=== PATIENT | male | born 1980 | race Caucasian/White ===

== ENCOUNTER 2018-08-25 17:14 | Observation (INO) | payer OTHER ==
--- NOTE | 2018-08-25 18:07 | ED ---
Neurological HPI - HPI Summary HPI Summary: A 37 y/o M presents to ED with c/o intermittent blurry vision in L eye onset this AM. Associated sx: bilateral double vision, L eye drifting, mild R hand numbness, abd cramping. He's had similar sx two weeks ago, and states it happened once before approximately 10 years ago. He notes that when he had an episode of L eye drifting two weeks ago, he had started Depakote for mood stabilization a day or two before. Pt denies any fever, chills, erythema of eyes , sore throat, CP, SOB, cough, abdominal pain, N/V, dysuria, hematuria, myalgia , edema, rash, SHAY, slurred speech, dizziness. He's been clean since Apr 24. Pt sent from [facility], he's been in-patient there for two months. PMHx: substance abuse (heroin, meth), L forearm fasciotomy in April, MRSA. Denies lazy eye. - History of Current Complaint Chief Complaint: EDNeurologicalDeficit Stated Complaint: DOUBLE VISION PER PT Time Seen by Provider: 08/25/18 17:51 Hx Obtained From: Patient Onset/Duration: Started hours ago, Still Present Timing: Intermittent Episodes Lasting: Current Severity: Moderate Seizure Severity: Moderate Pain Intensity: 0 Pain Scale Used: 0-10 Numeric Character: Visual Changes Aggravating: Nothing Alleviating: Unknown Associated Signs and Symptoms: Positive: Visual Changes, Numbness - R hand - Allergy/Home Medications Allergies/Adverse Reactions: Allergies Allergy/AdvReac Type Severity Reaction Status Date / Time acetaminophen [From Tylenol] Allergy Hives/Diff. Verified 08/25/18 17:46 Breathing/I tching PMH/Surg Hx/FS Hx/Imm Hx Previously Healthy: No Opthamlomology History: Denies: Hx Legally Blind EENT History: Denies: Hx Deafness Neurological History: Denies: Hx Dementia Psychiatric History: Reports: Hx Substance Abuse Infectious Disease History: Yes Infectious Disease History: Reports: Hx of Known/Suspected MRSA Denies: Traveled Outside the [place] in Last 30 Days - Social History Occupation: Unemployed Lives: Retirement - [facility] in-patient Hx Substance Use: Yes Substance Use Type: Reports: Heroin, Other - meth Substance Use Comment - Amount & Last Used: Clean since apr 2019 Review of Systems Negative: Fever, Chills Positive: Blurred Vision, Diplopia, Other - pos: L eye drifting. Negative: Drainage Negative: Sore Throat Negative: Chest Pain Negative: Shortness Of Breath, Cough Positive: Abdominal Pain - abd cramping. Negative: Vomiting, Nausea Negative: dysuria, hematuria Negative: Myalgia, Edema Negative: Rash Neurological: Other - neg: dizziness Positive: Numbness - R hand. Negative: Headache, Slurred Speech All Other Systems Reviewed And Are Negative: Yes Physical Exam - Summary Physical Exam Summary: Constitutional: Well-developed, Well-nourished, Alert. (-) Distressed Skin: Warm, Dry HENT: Normocephalic; Atraumatic Eyes: Conjunctiva normal, horizontal end gaze nystagmus Neck: Musculoskeletal ROM normal neck. (-) JVD, (-) Stridor, (-) Tracheal deviation Cardio: Rhythm regular, rate normal, Heart sounds normal; Intact distal pulses; The pedal pulses are 2+ and symmetric. Radial pulses are 2+ and symmetric. (-) Murmur Pulmonary/Chest wall: Effort normal. (-) Respiratory distress, (-) Wheezes, (-) Rales Abd: Soft. (-) Tenderness, (-) Distension, (-) Guarding, (-) Rebound Musculoskeletal: (-) Edema Lymph: (-) Cervical adenopathy Neuro: Alert, Oriented x3, Strength normal, Cranial nerves II-XII are grossly intact. (-) Dysmetria, (-) Nystagmus, (-) Ataxia by finger to nose testing, (-) Sensory deficit. Psych: Mood and affect Normal Triage Information Reviewed: Yes Vital Signs On Initial Exam: Initial Vitals Temp Pulse Resp BP Pulse Ox 97.8 F 88 20 145/90 97 08/25/18 17:43 08/25/18 17:43 08/25/18 17:43 08/25/18 17:43 08/25/18 17:43 Vital Signs Reviewed: Yes - Natalia Coma Scale Best Eye Response: 4 - Spontaneous Best Motor Response: 6 - Obeys Commands Best Verbal Response: 5 - Oriented Coma Scale Total: 15 Diagnostics - Vital Signs Vital Signs Temp Pulse Resp BP Pulse Ox 08/25/18 17:43 97.8 F 88 20 145/90 97 - Laboratory Result Diagrams: 08/25/18 18:33 08/25/18 18:33 Lab Statement: Any lab studies that have been ordered have been reviewed, and results considered in the medical decision making process. - CT BRAIN CT CT Interpretation Completed By: Radiologist Summary of CT Findings: IMPRESSION: No acute intracranial pathology. ED provider has reviewed this report. CTA CT Interpretation Completed By: Radiologist Summary of CT Findings: IMPRESSION: Normal head CTA. Normal neck CTA. ED provider has reviewed this report. - EKG 1929 Cardiac Rate: NL - 77bpm EKG Rhythm: Sinus Rhythm Summary of EKG Findings: No STEMI. Re-Evaluation - Re-Evaluation 1 Re-Evaluation Time: 21:28 Change: Unchanged Comment: Discussing results with pt, and potential for admission. He is agreeable to this. Course/Dx - Course Course Of Treatment: Pt is a 37 y/o M presenting with intermittent blurry vision in L eye, L eye drifting and blurred vision bilaterally onset this AM. He 's had similar sx two weeks ago, and states it happened once before approximately 10 years ago. PE finds horizontal end gaze nystagmus. R/o CVA vs. demyelinating disease. Consulted with Dr. Hernandez, neuro, who recommends CTA , MRI and admission. Consulted with Dr. Coats, hospitalist, who will admit patient. - Diagnoses Provider Diagnoses: Diplopia - Physician Notifications Discussed Care Of Patient With: Mk Hernandez - neuro Time Discussed With Above Provider: 20:00 Instructed by Provider To: Other - Recommends CTA head/neck to rule out vasospasm in event pt is still using drugs, and MRI, and admission to hospital. Discharge - Sign-Out/Discharge Documenting (check all that apply): Patient Departure - ADMIT Patient Received Moderate/Deep Sedation with Procedure: No - Discharge Plan Condition: Stable Disposition: ADMITTED TO [facility] Referrals: No Primary Care Phys,NOPCP [Primary Care Provider] - - Attestation Statements Document Initiated by Scribe: Yes Documenting Scribe: Maicol Botello Provider For Whom Scribe is Documenting (Include Credential): Dr. Efraín Flores MD Scribe Attestation: Maicol Zhou, scribed for Dr. Efraín Flores MD on 08/25/18 at 2142. Consult Consult: 2133: Consult with Dr. Coats, hospitalist Will admit patient
[2018-08-25 18:43] LABS: ABS Basophils 0.1 10^3/ul (0-0.2); ABS Eosinophils 0.4 10^3/ul (0-0.6); ABS Lymphocytes 3.2 10^3/ul (1.0-4.8); ABS Monocytes 0.7 10^3/ul (0-0.8); ABS Neutrophils 3.5 10^3/ul (1.5-7.7); ABS Nucleated RBC 0 10^3/ul; Eosinophil % 4.6 %; Hematocrit 38 % (36-46); Hemoglobin 12.9 g/dL (14.0-18.0); Lymphocyte % 40.7 %; Mean Corpuscular HGB Conc 34 g/dL (31-36); Mean Corpuscular Hemoglobin 30 pg (27-31); Mean Corpuscular Volume 86 fL (80-94); Mean Platelet Volume 7.3 fL (7.4-10.4); Nucleated Red Blood Cells % 0; Platelet Count 252 10^3/uL (150-450); Red Blood Count 4.37 10^6 /uL (4.18-5.48); Red Cell Distribution Width 13 % (10.5-15); White Blood Count 7.8 10^3/uL (3.5-10.8)
[2018-08-25 19:02] LABS: ALT 16 U/L (7-52); AST 21 U/L (13-39); Albumin/Globulin Ratio 1.4 (1-3); Alkaline Phosphatase 36 U/L (34-104); Anion Gap 3 mmol/L (2-11); Blood Urea Nitrogen 19 mg/dL (6-24); CO2 Carbon Dioxide 32 mmol/L (22-32); Calcium 9.1 mg/dL (8.6-10.3); Chloride 104 mmol/L (101-111); EGFR African American 108.5 (>60); EGFR Non-African American 89.7 (>60); Globulin 2.8 g/dL (2-4); Glucose 113 mg/dL (70-100); Sodium 139 mmol/L (135-145); Total Protein 6.8 g/dL (6.4-8.9)
[2018-08-25 19:23] LABS: Lithium 0.64 mmol/L (0.6-1.2)
[2018-08-25] MEDS ORDERED: Iohexol 350* (CONTRAST) 500 ML MDV IV ONE (20:11)
[2018-08-25 20:26] LABS: Alcohol < 10 mg/dL (<10)
[2018-08-25] MEDS ORDERED: Nicotine GUM* 2 MG PO PRN (22:21)
[2018-08-25] MEDS ORDERED: Melatonin 3 MG TAB PO PRN (22:21)
[2018-08-25] MEDS ORDERED: cloNIDine TAB* 0.1 MG PO PRN (22:21)
[2018-08-25 22:51] LABS: Urine Appearance Clear; Urine Bilirubin Negative (Negative); Urine Blood Negative (Negative); Urine Color Yellow; Urine Glucose Negative (Negative); Urine Ketones Negative (Negative); Urine Nitrite Negative (Negative); Urine Protein Negative (Negative); Urine Urobilinogen Negative (Negative)
[2018-08-25 23:12] LABS: Barbiturates Urine Screen None Detected (None Detect); Benzodiazepine Urine Screen None Detected (None Detect); Urine Cannabinoids Screen None Detected (None Detect)
[2018-08-25] MEDS ORDERED: Gabapentin CAP(*) 300 MG PO SCH (23:52)
[2018-08-26] MEDS: Lithium Carbonate TAB* 300 MG PO SCH ×2 (00:25→08:56)
--- NOTE | 2018-08-26 00:41 | HP ---
CC: Clinical Staff at [facility]; Dr. Mk Hernandez * ADMISSION HISTORY AND PHYSICAL: DATE OF ADMISSION: 08/25/18 PRIMARY CARE PROVIDER: The patient's primary care provider is in [place], [place]. He is currently seeing providers at [facility] here in [place]. ATTENDING PHYSICIAN ON THIS ADMISSION: Dr. Debby Coats.* (DICTATED BY BRIAN BROWN, DESHAUN) CONSULTING PHYSICIAN: Dr. Mk Hernandez of Neurology. CHIEF COMPLAINT: Blurry vision, visual disturbances since Wednesday. HISTORY OF PRESENT ILLNESS: This is a very pleasant 37-year-old male patient who has been a resident of [facility] for the last 2 months, who reports visual disturbances that started on Wednesday. The patient initially noted some drifting of his left eye that appeared to present to him like a lazy eye, which he has never had before. He noticed shortly thereafter some episodes of blurry vision , visual disturbances distantly, and then increased over the last 24 hours to the point that today he was having trouble breathing, stated that words on the paper appeared to be doubled and very fuzzy. The patient also as a part of his therapy at [facility] does stitch work, crocheting, and knitting and noticed that he was unable to perform this activity. When these symptoms increased today, he was sent to the emergency department for evaluation. In the ED, the patient had a CT and CTA of the head, both of which were negative and did not show any acute pathologies. Neurology was consulted. Given his persistent visual disturbances, Neurology recommended MRI and observation admission. PAST MEDICAL HISTORY: Significant only for wound in the forearm that required fasciotomy. Denies any further medical history. PAST SURGICAL HISTORY: History of fasciotomy. HOME MEDICATIONS: 1. Melatonin 10 mg at bedtime as needed. 2. Nicotine gum 16 mg p.o. 2 times a day as needed. 3. Clonidine 0.1 mg p.o. 4 times a day as needed. 4. Buprenorphine 8 mg sublingual 2 times a day. 5. Depakote 250 mg p.o. b.i.d. 6. Gabapentin 600 mg at bedtime and 400 mg 3 times a day. 7. Tofranil 50 mg at bedtime. 8. Strattera 100 mg p.o. daily. 9. [place] carbonate 600 mg p.o. b.i.d. ALLERGIES: The patient has allergy to TYLENOL which causes rash and shortness of breath. FAMILY HISTORY: Noncontributory. SOCIAL HISTORY: The patient is currently a resident at [facility]. He does have history of substance abuse in the form of heroin and methamphetamines and was using tobacco products as well. He is now currently on nicotine patch. The patient has been clean and sober since April 2018. REVIEW OF SYSTEMS: The patient denies any fever, fatigue, or chills. No headache. He does endorse blurry vision and difficulty reading, also notes visual disturbance at a distance, but denies any eye pain. He does not report any fatigue or chills. No shortness of breath, no nausea, no vomiting, no urinary complaints, and no further constitutional complaints. PHYSICAL EXAMINATION GENERAL: The patient is well appearing, well developed male, appears to be of stated age, in no acute distress. VITAL SIGNS: Blood pressure 124/76, heart rate 86, respiratory rate 16, O2 saturation 97% on room air with a temperature of 98.4. HEENT: The patient is atraumatic, normocephalic. He has PERRLA, nonicteric sclerae. He does have a left upper nystagmus. Otherwise, his extraocular movements are intact. Oral mucosa is moist. Tongue is midline. NECK: Supple, nontender. No JVD noted. No carotid bruit auscultated. LUNGS: Clear bilaterally to auscultation with no wheezing, rhonchi, or rales. CARDIOVASCULAR: S1, S2 present. No murmurs, gallops, or rubs noted. ABDOMEN: Soft and nontender and nondistended. Positive bowel sounds in all 4 quadrants. : Deferred. MUSCULOSKELETAL: There is no clubbing, no cyanosis, no edema. He has +2 distal pulses palpable. Full range of motion. Gross motor and sensation are intact. NEUROLOGIC: No focal deficits. Physically at this time, he has equal supervisor shuttle preparation, steady gait. Visual disturbance does remain persistent. PSYCHIATRIC: He is cooperative and appropriate. DIAGNOSTIC STUDIES/LAB DATA: WBC 7.8, RBCs 4.37, hemoglobin 12.9, hematocrit 38 , platelets 252. Sodium 139, potassium 4.0, chloride 104, CO2 of 32, BUN 19, creatinine 0.95, GFR 89.7, glucose 113, lactic acid 0.8, calcium 9.1. Bilirubin 0.30, AST 21, ALT 16, alk phos 36. Troponins negative at 0.00. Protein 6.8, albumin 4.0, globulin 2.8. Serum alcohol is less than 10. [place] level 0.64. Valproic acid level is 18.0. IMPRESSION: This is a 37-year-old male patient with no significant medical history who presents with visual disturbance and persistent diplopia. PLAN: The patient will be admitted to observation. Diagnosis: Visual disturbance and blurred vision. Neurology has already been consulted by the emergency department. Dr. Hernandez will see the patient tomorrow. Dr. Hernandez recommended an MRI in the morning and he will evaluate the patient. In terms of his medications, the patient's story is consistent with what may be a medication side effect. He reported that the visual troubles started on Wednesday morning after he started his first dose of Depakote which was a new prescription for him on Wednesday. Depakote is known to cause visual disturbances and my thought is in absence of any other pathology on his MRI that this could possibly be a medication reaction. We will hold the Depakote for now. The patient is agreeable to this. He does state that he did not feel right on the Depakote either and continue to monitor his visual function. In either case, I did explain to the patient that if his neurology workup was negative and his vision improved, he would still need to follow up with an weld engineer as an outpatient. He is also agreeable to this. The patient's labs were unremarkable and so was his imaging. At this point, the patient will stay in observation, home medications will be continued with the exception of his Depakote, and we will monitor the patient throughout the evening, also doing neuro checks q.4 hours. The rest of the patient's course will be determined by further diagnostics, laboratories, and any other input from other providers as warranted during this admission. TIME SPENT: Approximately 60 minutes evaluating the patient and determining admission plan of care. This plan of care has been discussed with Dr. Debby Coats, who is in agreement. BRIAN BROWN, DESHAUN [id number]/[facility] #: [id number] [facility]ENT[facility]
[2018-08-26] MEDS: Gabapentin CAP(*) 400 MG PO SCH ×2 (08:57→14:14)
[2018-08-26] MEDS ORDERED: Buprenorphine TAB* 8 MG SL SCH (09:00)
[2018-08-26] MEDS ORDERED: Lithium Carbonate TAB* 300 MG PO SCH (09:00)
[2018-08-26] MEDS ORDERED: CMCS:Atomoxetine(NF) 25 MG CAP PO SCH (09:00)
[2018-08-26 14:29] VITALS: BP 121/74
[2018-08-26] MEDS ORDERED: Aspirin 81 mg CHEW TAB* 81 MG TAB.CHEW PO SCH (15:00)
--- NOTE | 2018-08-26 15:53 | CONS ---
NEUROLOGY CONSULTATION NOTE: DATE OF CONSULT: 08/26/18 CONSULTING PROVIDER: Dr. Efraín Flores. REASON FOR CONSULT: Double vision. CHIEF COMPLAINT: Blurry vision in the left eye. HISTORY OF PRESENT ILLNESS: Mr. Aydin Lopez is a pleasant 37-year-old right- handed man with former history of heroin and methamphetamine use; he has been clean since 04/24/18. The patient is currently residing at [facility] right now for treatment of heroin addiction. He reported an injury approximately 1 week ago where he hit the back of his head. However, prior to this injury, the patient stated that he can see his left eye deviating towards the left. This occurs intermittently. He is able to retract and bring his eye back to primary gaze. This can last minutes, hours, and can occur intermittently. He was started on Depakote 2 weeks ago 250 mg twice daily for mood stabilization. Yesterday morning on 08/25/18, the patient woke up with double vision. He sees his vision overlapping. The double vision is described as horizontal, binocular and it resolves with 1 eye closure. The double vision is worse when he looks towards the left and gets much better when looking towards the right. He has an associated symptoms of mild headache, it is in the bitemporal region, pressure-like, 2-1/2 out of 10 in severity, nonradiating, and not associated with any nausea. He does have light photosensitivity. He denies history of migraines. He denied focal weakness or paresthesias. He denied any trouble swallowing. He denied any tinnitus or vertigo. The patient stated that over the past few weeks he has noticed some trouble with numbness in the right hand radiating towards the right wrist. Shaking the hand does not improve his symptoms. PAST MEDICAL HISTORY: Hepatitis C, depression, bipolar disorder type 2, posttraumatic stress disorder, generalized anxiety. The patient has a history of seizures following benzodiazepine withdrawal, January of 2018. He was evaluated by Neurology at Dr. Arzola's office in [place]. PAST SURGICAL HISTORY: The patient has tube placed in the jaw. He had a fasciotomy due to abscess drainage in the left arm. His nail was removed from an accident. He had a polypectomy and a hemorrhoidectomy. MEDICATIONS: Home medications include: 1. Nicotine gum. 2. Clonidine 0.1 mg p.o. 4 times a day as needed. 3. Buprenorphine 8 mg sublingual b.i.d. 4. Depakote 250 mg p.o. b.i.d. 5. Gabapentin 600 mg at bedtime. 6. Gabapentin 400 mg p.o. 3 times a day. 7. Tofranil 50 mg p.o. at bedtime. 8. Strattera 100 mg p.o. daily. 9. [place] carbonate 600 mg p.o. b.i.d. 10. Melatonin 10 mg p.o. at bedtime. ALLERGIES: ACETAMINOPHEN. REVIEW OF SYSTEMS: A 14-point review of systems was obtained and otherwise negative except for what was mentioned in the HPI. PHYSICAL EXAMINATION: Vitals: Temperature of 98.0, heart rate of 67, respiratory rate of 20, oxygen saturation 99%, blood pressure 107/64. General: A well- nourished, well-developed man in no acute distress. Head: Normocephalic, atraumatic without any obvious abnormality. Eyes: Conjunctivae/ corneas are clear. Neck: Supple and symmetrical with no carotid bruit. Lungs: Clear to auscultation bilaterally. Nonlabored breathing. Cardiovascular: Slight tachycardia with normal S1, S2. Extremities: Normal range of motion with no cyanosis. Skin: He has got a fasciotomy on the left that is well healed. No other skin lesions or rashes. Psych: Affect is broad and normal mood. Neurological Examination: Mental Status: Awake, alert, and oriented to person, place, time, and general circumstances. Speech and language including expression, naming, repetition, and comprehension were assessed and found to be normal. Cranial Nerves: Normal confrontation testing bilaterally. Pupils are midrange and reactive to light. Undilated funduscopic examination showed normal disc margins bilaterally. He has no ptosis. There is slight weakness to the lateral rectus muscle on the left, but no significant weakness is noted. He has binocular diplopia that is horizontal that corrects with one eye closure. Worsening of double vision when eyes deviate towards the left. No facial asymmetry. He is able to hear throughout the history process. Symmetrical palatal elevation. There is normal strength against shoulder resistance. Tongue is symmetric in midline with no atrophy or fasciculation. Motor Examination: No abnormal movements or pronator drift. Normal bulk and tone throughout the upper and lower extremities with normal strength. Reflexes: Right/left brachioradialis 2/2, biceps 2/2, triceps 2/2, patella 3/2, ankle 2/2 , plantar flexor/flexor. Sensation is intact to light touch throughout. Normal vibratory sensation at the great toes. Coordination: Normal finger-to- nose and chsy-ej-mred testing. Gait and Station: Narrow based and normal stance. No ataxia. LABORATORY DATA, IMAGING, AND OTHER DIAGNOSTIC TESTING: WBC of 7.8, hemoglobin of 12.9, hematocrit of 38, platelet is 252. Sodium of 139, potassium is 4.1, chloride of 104, BUN of 19, lactic acid is 0.8. AST is 21, ALT is 16. Urinalysis was unremarkable with no evidence of pyuria. Urine toxicology screen , valproic acid is 18, lithium is 0.64. Imaging: CT of the head showed no evidence of acute intracranial abnormality. Head CTA completed on 08/25/18 showed very fine, thin, narrowed left vertebral artery throughout the extra and intracranial regions. MRI brain without contrast was completed and showed no evidence of any demyelinating disease, hyperintensities, or stroke. ASSESSMENT: Mr. Aydin Lopez is a 37-year-old man who has a history of head injury 1 week ago after hitting his head on a concrete wall, who was recently started on Depakote 2 weeks ago, who presents with a sudden-onset binocular horizontal diplopia that resolves with one eye closure. On examination, the patient has binocular diplopia that resolves with one eye closure with slight weakness with exacerbation of the diplopia when looking towards the left as well slight weakness with the lateral rectus muscle on the left. Differential diagnosis is broad and include traumatic abducens nerve palsy on the left, microvascular ischemic changes in the setting of Strattera. I do not think this is related to medication such as Depakote since he has taken a low dose and also since symptoms started suddenly yesterday. He does complain of more of subacute symptoms of left gaze deviation on the left eye, which raises a concern for other etiologies such as demyelinating disease. He had no evidence of elevated intracranial pressure given his intraocular examination. He has no history of alcohol use to suspect thiamine deficiency and the symptoms are not fluctuating or diurnal to suspect neuromuscular junction disorder. Plus, it's unlikely related to a neuromuscular disorder as he has no ptosis or any other complaints such as swallowing difficulties or focal weakness. RECOMMENDATIONS: I recommend repeating an MRI and obtaining a contrasted study to look at the jr and to evaluate for any possible demyelinating disease. I also added ESR, CRP, vitamin B12, TSH, and acetylcholine receptor antibody testing for further comprehensive evaluation. He does not have any significant headaches or fevers to suspect an infection that may contribute to his symptoms. He needs to discuss with his psychiatrist about Strattera as it can increase his risk for small vessel ischemic. We will treat him with a small- dose aspirin in case he does have evidence of microvascular ischemia to the nerve. Also he needs an urgent ophthalmologic evaluation as an outpatient. I will be more than happy to follow up with him in 3 to 4 weeks. He does not need to stay in the hospital if the MRI with contrast is unremarkable. TIME SPENT: I spent a total of 70 minutes of which more than 50% was spent obtaining history, examining the patient, and discussing the treatment plan with the patient and primary team. ADDENDUM: the patient was switched to Plavix 75 mg daily since he is allergic to aspirin. ESR, TSH, B12 are all within normal range. Again, I am not convinced that this is a stroke, but until he is evaluated by an economic forecaster , and a diagnosis is obtained, I recommend keeping him on Plavix for now. We will follow-up as an outpatient. [id number]/[facility] #: [id number] EDSON
[2018-08-26] MEDS ORDERED: Clopidogrel TAB* 75 MG PO SCH (16:00)
[2018-08-26 16:02] LABS: C Reactive Protein < 1.00 mg/L (<8.01)
[2018-08-26 16:41] LABS: TSH (Thyroid Stimulating Horm) 5.17 mcIU/mL (0.34-5.60)
[2018-08-26 16:48] LABS: Free T4 0.67 ng/dL (0.61-1.12)
[2018-08-26] MEDS ORDERED: Gabapentin CAP(*) 300 MG PO SCH (21:00)
[2018-08-26] MEDS ORDERED: CMCS:Imipramine (NF) 25 MG TAB PO SCH (21:00)
--- NOTE | 2018-08-26 21:49 | DS ---
DISCHARGE SUMMARY: DATE OF ADMISSION: DATE OF DISCHARGE: 08/26/18 HISTORY OF PRESENT ILLNESS: This 37-year-old man presented with blurry vision, diplopia and visual d isturbances for several days. This was interfering with some of his activities. He presented to the emergency department. He had a CT and CTA of the head. He had an MRI later and then another MRI wi th contrast of the brain. Dr. Hernandez saw him in consultation for neurology. The imaging studies were all negative. It is possible that he had a very small stroke that was missed because of the small si ze. The patient has a history of being allergic to [employer]ED[employer], which contains acetaminophen, aspirin and caffeine. This was about 6 years ago when his throat closed up and his neck and chest tu rned red. He has avoided taking anything with aspirin or acetaminophen since then. The rest of the history is detailed in the admission note. The patient was quite stable in the hospital. He still said he had diplopia on the day of discharge. We have recommended he make an appointment with an preparation plant supervisor. He will follow up with Dr. Chata finley in 3 to 4 weeks. He is being started on clopidogrel 75 mg daily with the first dose to be given i n the hospital. FINAL DIAGNOSES: 1. Diplopia. 2. Substance abuse. 3. Tobacco abuse. DISCHARGE MEDICATIONS: 1. Clopidogrel 75 mg daily. 2. Nicotine gum as directed. 3. Clonidine 0.1 mg 4 times daily p.r.n. agitation. 4. Buprenorphine 8 mg sublingual b.i.d. 5. Depakote 250 mg b.i.d. 6. Gabapentin 400 mg t.i.d. plus 600 mg at bedtime. 7. Tofranil 50 mg h.s. 8. Strattera 100 mg orally daily. 9. [place] carbonate 600 mg b.i.d. 10. Melatonin 10 mg h.s. p.r.n. DRUG LEVELS: Valproic acid 18.0, lithium 0.64, serum alcohol level less than 10. CONDITION ON DISCHARGE: Stable. DISPOSITION ON DISCHARGE: Discharged to [facility] Inpatient Rehab. [id number]/[facility] #: [id number]
== END 2018-08-26 15:50 ==
LOC: ED 17:14 → MEDTELE 21:54
PROVIDERS: ADMIT Pediatrics; ATTEND Internal Medicine
DX: H53.2 Diplopia (principal); F19.10 Other psychoactive substance abuse, uncomplicated; F17.210 Nicotine dependence, cigarettes, uncomplicated; H53.8 Other visual disturbances; Z87.891 Personal history of nicotine dependence; J32.9 Chronic sinusitis, unspecified; F11.20 Opioid dependence, uncomplicated; Z86.14 Personal history of Methicillin resistant Staphylococcus aureus infection
CPT/HCPCS: 36415; 70450; 70496; 70498; 70551; 70552; 80053; 80164; 80178; 80307; 80320; 81003; 82164; 82607; 83519; 83605; 84439; 84443; 84484; 85025; 85652; 86140; 87641; 93005; 99284; A9270-GY; G0378; G0480; Q9967